=== PATIENT | female | born 1990 | race Caucasian/White ===

== ENCOUNTER 2018-04-19 10:43 | Emergency (ER) | payer OTHER ==
[~2018-04-19] VITALS: Ht 162.6 cm; Wt 143.6 kg
[~2018-04-19 10:43] MED LIST: ALBU18HF2 IH; GLYC1SUP79 RC; HYDR-3965 PO; MAGN296S68 CORPAK; NAPR-56 PO; ONDA8TAB9 PO; POLY17PO10 PO; REG10L PO; ZOF4T PO
--- NOTE | 2018-04-19 11:07 | NUR ---
PATIENT STARTED AUGMENTIN FOR BRONCHITIS AND BILATERAL EAR INFECTIONS WITH LEFT "EARDRUM BURSTED" PATIENT STATES THAT SHE HAS TAKEN EVERY DOSE OF AUGMENTIN BUT PROCEEDS TO THROW UP 45 MINUTES LATER
--- NOTE | 2018-04-19 11:20 | NUR ---
PER Funmi BURKETT WHO IS IN ROOM: DO NOT NEED THE REST OF LABS: LAB INFORMED PATIENT WALKED TO BATHROOM: RR EVEN AND UNLABORED: DENIED SOB
--- NOTE | 2018-04-19 11:23 | NUR ---
PATIENT WAS UNABLE TO VOID
[2018-04-19] MEDS ORDERED: PRED20TA PO (11:30)
[2018-04-19] MEDS ORDERED: GUAI120015 PO (11:30)
[2018-04-19] MEDS ORDERED: CEPH-571 PO (11:30)
[2018-04-19] MEDS ORDERED: lactulose 20gm/30ml cup PO ONE (11:30)
[2018-04-19] MEDS ORDERED: ALBU6.7H INH (11:30)
[2018-04-19 11:49] VITALS: BP 129/81
[2018-04-19 11:52] LABS: ALANINE AMINOTRANSFERASE 18 U/L (12-78); ALBUMIN 3.3 G/DL (3.4-5.0); ALBUMIN/GLOBULIN RATIO 0.7 (1.1-1.5); ALKALINE PHOSPHATASE 97 IU/L (46-116); ANION GAP 14 (8-16); ASPARTATE AMINO TRANSFERASE 19 U/L (10-37); BILIRUBIN,TOTAL 0.4 MG/DL (0.1-1.0); BLOOD UREA NITROGEN 9 MG/DL (7-18); BUN/CREATININE RATIO 11.3 (6.6-38.0); CALCIUM 8.6 MG/DL (8.5-10.1); CHLORIDE 105 MMOL/L (99-107); GLUCOSE 100 MG/DL (70-104); POTASSIUM 3.7 MMOL/L (3.5-5.1); SODIUM 138 MMOL/L (135-145); TOTAL CARBON DIOXIDE 18.7 MMOL/L (24-32); TOTAL PROTEIN 8.1 G/DL (6.4-8.2); eGFR 87 ML/MIN
== END 2018-04-19 11:54 | disposition home or self-care (01) ==
LOC: ER 10:44
DX: E86.0 Dehydration (principal); J45.909 Unspecified asthma, uncomplicated; J40 Bronchitis, not specified as acute or chronic; K59.00 Constipation, unspecified; G43.909 Migraine, unspecified, not intractable, without status migrainosus; Z90.89 Acquired absence of other organs; Z79.899 Other long term (current) drug therapy; Z88.1 Allergy status to other antibiotic agents
CPT/HCPCS: 36415; 71045; 80053; 87040; 99284